=== PATIENT | female | born 2000 | race Hispanic/Latino ===

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

== ENCOUNTER 2024-05-09 08:37 | Outpatient (CLI) | payer OTHER | END 2024-05-09 08:38 | disposition home or self-care (01) | LOC: BICULT 08:37 | DX: Z34.82 Encounter for supervision of other normal pregnancy, second trimester (principal); Z3A.20 20 weeks gestation of pregnancy | CPT/HCPCS: 76805 ==